=== PATIENT | female | born 1950 | race Caucasian/White ===

== ENCOUNTER 2016-05-23 10:17 | Outpatient (CLI) | payer OTHER ==
[~2016-05-23 10:17] MED LIST: CLARITIN10 M2 PO; IBUPROFEN600 MG PO; MULTIVITAMIN1 TAB PO
--- NOTE | 2016-05-23 12:39 | DIAGNOSTIC IMAGING REPORT ---
PROCEDURE: DEXA BONE DENSITY STUDY CLINICAL INDICATION: OSTEOPOROSIS COMPARISON: 01/12/2015 DEXA FINDINGS: LUMBAR SPINE: Bone mineral density 0.952 g/cm2, T score -0.9 normal which represents a 2% improvement from the previous study LEFT HIP: Bone mineral density 0.604 g/cm2, T score -2.8 osteoporosis which represents a 3.6% decrease since the previous study LEFT FEMORAL NECK: Bone mineral density 0.560 g/cm2, T score -2.6 osteoporosis which represents a 10.4% decrease from the previous study FRACTURE RISK CALCULATION ( when applicable): 10-year fracture risk of a major osteoporotic fracture and of a hip fracture not reported because some T-score at or below -2.5 (T score greater or equal to -1.0 to: NORMAL) (T score from -1.1 to -2.4: OSTEOPENIA) (T score ess than or equal to -2.5: OSTEOPOROSIS) IMPRESSION: 1. Osteoporosis left hip and femoral neck.
== END 2016-05-23 23:00 ==
LOC: XR SRH 10:17
DX: M81.8 Other osteoporosis without current pathological fracture (principal)